=== PATIENT | female | born 1945 | race Caucasian/White ===

== ENCOUNTER 2017-02-18 11:45 | Emergency (ER) | payer OTHER ==
[~2017-02-18] VITALS: Ht 160 cm; Wt 52.6 kg
[~2017-02-18 11:45] MED LIST: ASPIR 8181 M1 PO; CALCIUM 500 MG1 EACH PO; CALCIUM PO; SUPER CALCIUM600 MG PO; VITAMIN D400 UNI4 PO; VITAMIN D5000 UNI1 PO
[2017-02-18 14:56] VITALS: BP 101/70
== END 2017-02-18 14:56 | disposition home or self-care (01) ==
LOC: EME 11:45
DX: H53.8 Other visual disturbances (principal); R51 Headache
CPT/HCPCS: 70450; 99281; 99283